=== PATIENT | female | born 1995 | race Caucasian/White ===

== ENCOUNTER 2016-10-06 18:39 | Emergency (ER) | payer BC, MEDICAID ==
[~2016-10-06] VITALS: Ht 167.6 cm; Wt 68.0 kg
[2016-10-06 18:48] VITALS: BP 113/93; PULSE 110; RESP 18; TEMP 98.3; O2SAT 98
--- NOTE | 2016-10-06 20:22 | NUR ---
Patient to ER H1 to gown for evaluation.
--- NOTE | 2016-10-06 20:22 | NUR ---
Mauro fry in ED - 10/06/16 at 3 by CHANDLER Patient to ER H1 for evaluation.
--- NOTE | 2016-10-06 20:22 | NUR ---
Pt ambulatory, a/o x 4, c/o sore throat with mild headache x 2 days. Pt reported 6/10 ps worse on swallowing. Pt has been taking dayquil with some relief. Pt afebrile, no chills, no n/v. Pt with normal respiratory effort, no sob, denied any cough or recent resp problem.
--- NOTE | 2016-10-06 20:31 | NUR ---
MOLLY Maynard examining patient.
[2016-10-06 21:28] VITALS: BP 115/89; PULSE 99; RESP 18; TEMP 98.2; O2SAT 98
--- NOTE | 2016-10-06 21:28 | NUR ---
Patient given written and verbal discharge instructions by Kelley Maynard and verbalizes understanding. ER CONTROL OFFICER MANAGER Kelley Maynard discussed with patient the results and treatment provided. Patient in stable condition. ID arm band removed. Rx of Penicillin VK 500 mg tab and Motrin 500 mg tab given. Patient educated on pain management and to follow up with PMD. Pain Scale 5/10. Opportunity for questions provided and answered.
== END 2016-10-06 21:28 | disposition home or self-care (01) ==
LOC: SED 18:39
DX: J02.9 Acute pharyngitis, unspecified (principal); J45.909 Unspecified asthma, uncomplicated
CPT/HCPCS: 81025; 99283

== ENCOUNTER 2020-10-17 20:22 | Emergency (ER) | payer SELFPAY ==
[~2020-10-17] VITALS: Ht 167.6 cm; Wt 67.1 kg
[2020-10-17 20:30] VITALS: BP_SYST 166
[2020-10-17] MEDS ORDERED: AMOX500C2 PO (21:02)
[2020-10-17 21:33] VITALS: BP_SYST 139
== END 2020-10-17 21:33 | disposition home or self-care (01) ==
LOC: SED 20:22
DX: J02.9 Acute pharyngitis, unspecified (principal); J45.909 Unspecified asthma, uncomplicated
CPT/HCPCS: 99283